=== PATIENT | male | born 1990 | race Caucasian/White ===

== ENCOUNTER 2018-10-21 15:47 | Emergency (ER) | payer OTHER ==
[~2018-10-21] VITALS: Ht 177.8 cm; Wt 109.8 kg
[2018-10-21 15:55] VITALS: BP_SYST 132
--- NOTE | 2018-10-21 15:59 | NUR ---
Patient to ER bed 7 to gown for evaluation. Side rails up. Report given to Saleem GIBSON.
--- NOTE | 2018-10-21 16:20 | NUR ---
Radiology at bedside for XR
--- NOTE | 2018-10-21 16:32 | NUR ---
Pt [email or web address] presents to ED c/o 02/09 pain to L ankle s/p injury while paintballing x 1 hour ago. Pt states he stopped abruptly, put all his weight on his L ankle, and heard a pop. Swelling noted to L lateral malleolus. No bleeding present. No other injuries/complaints per pt/noted. Will continue to monitor.
--- NOTE | 2018-10-21 16:39 | NUR ---
ER Dr. Begum at bedside examining patient.
--- NOTE | 2018-10-21 16:43 | NUR ---
Medication administered. Pt tolerated well. No adverse reactions noted.
[2018-10-21] MEDS ORDERED: IBUPROFEN 800 MG TABLET PO ONE (16:45)
--- NOTE | 2018-10-21 17:03 | NUR ---
Patient given written and verbal discharge instructions and verbalizes understanding. ER MD Begum discussed with patient the results and treatment provided. Patient in stable condition. ID arm band removed. Rx of Motrin given. Patient educated on pain management and to follow up with PMD. Pain Scale 0. Opportunity for questions provided and answered. Medication side effect fact sheet provided.
[2018-10-21 17:04] VITALS: BP_SYST 125
== END 2018-10-21 17:04 | disposition home or self-care (01) ==
LOC: SED 15:47
DX: S82.62XA Displaced fracture of lateral malleolus of left fibula, initial encounter for closed fracture (principal); R03.0 Elevated blood-pressure reading, without diagnosis of hypertension; X50.9XXA Other and unspecified overexertion or strenuous movements or postures, initial encounter; Y93.89 Activity, other specified; Y92.89 Other specified places as the place of occurrence of the external cause; Y99.8 Other external cause status
CPT/HCPCS: 99283